=== PATIENT | female | born 1995 | race Caucasian/White ===

== ENCOUNTER → 2019-08-18 17:43 | Outpatient (CLI) | payer MEDICAID, SELFPAY | PROVIDERS: Visit Provider Obstetrics & Gynecology | DX: Z11.59 Encounter for screening for other viral diseases (principal) | CPT/HCPCS: 87635; G2023; U0003 ==

== ENCOUNTER 2019-08-20 06:25 | Inpatient (IN) | payer MEDICAID, SELFPAY ==
[2019-08-20] VITALS (57 sets, daily range): BP systolic 81–138; BP diastolic 48–88; PULSE 83–130; RESP 18; TEMP 36.2–37.5; O2SAT 84–100; BMI 30.9
[2019-08-20] MEDS: Lactated Ringers 500 ML 999 ML IV ×2 (06:45→10:51)
[2019-08-20 07:06] LABS: Absolute Lymphocyte Count 1.51 X10^3/uL (0.83-4.51); Absolute Neutrophil Count 9.1 X10^3/uL (2.0-7.7); Basophil# 0.03 X10^3/uL; Basophil% 0.3 % (0-1); Eosinophil# 0.05 X10^3/uL; Eosinophils% 0.4 % (0-5); Hematocrit 34.5 % (37-47); Lymphocyte # 1.51 X10^3/ul (4.0); Mean Corp Hgb Conc 31.9 g/dL (32-36); Mean Corpuscular Hgb 25.8 pg (27.0-32.0); Mean Corpuscular Volume 80.8 fL (81-99); Mean Platelet Vol. 9.5 fl (6.2-12.0); Monocyte% 7.7 % (0-10); NRBC Flagged by Analyzer 0 % (0-5); Neutrophil # 9.07 X10^3/uL (2.7-7.7); Neutrophil % 77.7 % (47-70); Platelet Count 274 K/mm3 (150-450); RBC Distribution Width CV 14.7 % (11.6-14.6); RBC Distribution Width SD 42.8 fl (35.1-43.9); Red Blood Count 4.27 M/mm3 (4.2-5.4); White Blood Count 11.7 K/mm3 (4.4-11.0)
[2019-08-20] MEDS: Lactated Ringers 1,000 ML 50 ML IV (07:15)
[2019-08-20] MEDS: fentaNYL-bupivacaine (epidural) 100 ML BAG EPIDURAL ×2 (08:30→13:14)
[2019-08-20 09:46] LABS: Probe Check PASS; Specimen Processing Control PASS
[2019-08-20] MEDS: Oxytocin 30 units/NS 500 ml 30 UNITS/500 ML IV.SOLN IV (12:17)
[2019-08-20] MEDS: Lactated Ringers 1,000 ML 200 ML IV ×2 (12:17→17:28)
--- NOTE | 2019-08-20 17:49 | PCM.HP.OB ---
History Date of Admission: 08/20/19 Final KALI: 08/18/19 Gestational age: 40 Weeks and 2 Days History of this : This is a 24 year-old, G [], P [], at 40 weeks gestational age. Surgical History: Surgical History (Last Updated 08/20/19 @ 17:[address] Rakel Ortiz MD) H/O breast surgery Z98.890 Allergies No Known Allergies Allergy (Verified 08/20/19 06:42) Home Medications: Home Medications Vits [Prenatabs FA] 1 tab PO DAILY 08/20/19 Smoking Status: Never smoker Alcohol: None Number of Fetus(es): 1 NST - FHR Rate Baby A Baseline: 155 Variability:: Minimal, Moderate Accelerations:: 15 x 15 Decelerations:: Variable Uterine Activity:: Q2 minutes History Past Pregnancies: Past Pregnancies Delivery Date Name GA/ Weeks Outcome Route Wt Infant Sex Labor Length Anesthesia Delivery Location Provider FOB Labs: See [facility] prenatals Physical Exam Vitals: Vital Signs Temp Pulse BP Pulse Ox 99.1 F 115 H 113/65 98 08/20/19 16:42 08/20/19 17:39 08/20/19 17:38 08/20/19 17:39 General: Alert, Oriented x3 Abdomen: Soft, Non Tender, Non-Distended, 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 Admit to L&D Expectant management - patient is complete & pushing GBS negative COVID negative Pain - comfortable with epidural EFW less than 4500g, patient with adequate pelvis Routine care
--- NOTE | 2019-08-20 18:12 | PCM.OPRPT ---
Vaginal Delivery Maternal Presentation: Active Labor Amniotic Membrane Rupture Type: Artificial Amniotic Fluid Description: Clear Final KALI: 08/18/19 Gestational age: 40 Weeks and 2 Days Date of Procedure: 08/20/19 Pre-Operative Diagnosis: Labor Post-Operative Diagnosis: Labor Surgery/ Procedure Performed: Spontaneous Vaginal Delivery Type of Anesthesia: Epidural Description of Procedure: Patient prepped and draped in stirrups when patient C/C/+3. She pushed to deliver the head. head gently guided to allow delivery of anterior and posterior. No excess traction placed on head. Shoulders & body delivered. Infant placed on maternal abdomen. 3VC clamped & cut in delayed fashion. Placenta delivered with gentle traction and good uterine tone obtained. Placental Delivery Description: Expressed Placenta Disposition: [facility] Cord Vessel Description: 3 Vessels Cord Entanglement: None Estimated Blood Loss: 350ml A gender: Male - Favian (1 minute): 8 (5 minute): 9 Episiotomy Description: None Laceration: 2nd degree - perineal and bilateral first degree vaginals - repaired with 3-0 vicryl Medications given after delivery: IV Pitocin Complications: None
[2019-08-20] MEDS: Oxytocin 30 units/NS 500 ml 30 UNITS/500 ML IV.SOLN 334 UNITS IV (18:41)
[2019-08-20] MEDS: Methylergonovine 0.2 MG/ML Ampul IM (20:33)
[2019-08-20] MEDS: Acetaminophen 500 MG Tablet 1000 MG PO (21:13)
[2019-08-21] MEDS: Ibuprofen 600 MG Tablet PO ×2 (02:54→12:28)
[2019-08-21] MEDS: Dibucaine 30 GM Tube 1 APPLIC TOPICAL (02:55)
[2019-08-21 03:07] VITALS: BP 103/69; PULSE 93; RESP 14; TEMP 36.8
[2019-08-21 08:30] VITALS: BP 101/60; PULSE 101; RESP 18; TEMP 36.6
[2019-08-21] MEDS: Acetaminophen 500 MG Tablet 1000 MG PO (08:34)
[2019-08-21 12:05] VITALS: BP 91/52; PULSE 96; RESP 16; TEMP 36.9
[2019-08-21 15:25] VITALS: BP 89/43; PULSE 94; RESP 16; TEMP 37.3
--- NOTE | 2019-08-21 16:54 | NURSING ---
1525 Late Entry pt denies feeling lightheaded or dizzy.
[2019-08-21 20:25] VITALS: BP 106/64; PULSE 98; RESP 16; TEMP 36.7
[2019-08-22] MEDS: Acetaminophen 500 MG Tablet 1000 MG PO ×2 (00:55→14:22)
[2019-08-22 02:00] VITALS: BP 84/56; PULSE 84; RESP 16; TEMP 37.1
[2019-08-22 07:48] VITALS: BP 98/62; PULSE 81; RESP 16; TEMP 36.6
--- NOTE | 2019-08-22 08:05 | DCINST_ITS ---
Discharge Diet: No Restrictions Discharge Activity: Return to Normal Activity May resume sexual activity in: 6-8 weeks Additional Instructions: If you experience any of the following, contact your healthcare provider. * Bleeding that soaks a pad every hour for 2 hours * Fever 100.4 or higher * Unrelieved incision or abdominal pain * Swelling, redness, discharge or bleeding from your incision or episiotomy site * Your incision begins to separate * Problems urinating (including inability to urinate or burning while urinating). * Visual changes * Severe headache * Flu-like symptoms * Pain or redness in one of both of your breasts * Pain, warmth, tenderness or swelling in your legs, especially the calf area * Frequent nausea and vomiting * Symptoms of depression or anxiety If you experience any of the following, call 911 or go to the nearest Emergency Room. * Chest pain * Problems breathing * Seizure activity * Partial or complete paralysis of a body part, slurred speech, weakness or drooping of the face, or a sudden inability to walk or hold your balance Allergies/Adverse Reactions: Allergies No Known Allergies Allergy (Verified 08/20/19 06:42) Medications to take at Discharge Vits [Prenatabs FA ] 1 tab PO DAILY 08/20/19 Please Follow Up With: Rakel Ortiz MD When: 2 weeks/ virtual visit and 6 weeks in office Test Results: Test results from this visit will be discussed in further detail at your follow- up appointment, if applicable.
--- NOTE | 2019-08-22 08:05 | PCM.DCVAG ---
Discharge Diet: No Restrictions Discharge Activity: Return to Normal Activity May resume sexual activity in: 6-8 weeks Additional Instructions: If you experience any of the following, contact your healthcare provider. Bleeding that soaks a pad every hour for 2 hours Fever 100.4 or higher Unrelieved incision or abdominal pain Swelling, redness, discharge or bleeding from your incision or episiotomy site Your incision begins to separate Problems urinating (including inability to urinate or burning while urinating). Visual changes Severe headache Flu-like symptoms Pain or redness in one of both of your breasts Pain, warmth, tenderness or swelling in your legs, especially the calf area Frequent nausea and vomiting Symptoms of depression or anxiety If you experience any of the following, call 911 or go to the nearest Emergency Room. Chest pain Problems breathing Seizure activity Partial or complete paralysis of a body part, slurred speech, weakness or drooping of the face, or a sudden inability to walk or hold your balance Allergies/Adverse Reactions: Allergies No Known Allergies Allergy (Verified 08/20/19 06:42) Medications to take at Discharge Vits [Prenatabs FA ] 1 tab PO DAILY 08/20/19 Please Follow Up With: Rakel Ortiz MD When: 2 weeks/ virtual visit and 6 weeks in office Test Results: Test results from this visit will be discussed in further detail at your follow-up appointment, if applicable.
--- NOTE | 2019-08-22 08:06 | PCM.PN.OB ---
Subjective: Patient seen at bedside. present for translation. Patient doing well, pain controlled with Motrin and Tylenol. Lochia decreased. Passing flatus. challenges but meeting with today. Requests to be discharged home today. - Physical Exam Vitals/I&O's: Vital Signs Temp Pulse Resp BP Pulse Ox 97.9 F 81 16 98/62 95 08/22/19 07:48 08/22/19 07:48 08/22/19 07:48 08/22/19 07:48 08/20/19 23:13 Oxygen Delivery Method Room Air Weight: 175 lb Body Mass Index (BMI) 30.9 Intake and Output for Last 24 Hours 08/20/19 08/21/19 08/22/19 23:59 23:59 23:59 Intake Total 3343.53 / 3343.53 Output Total 1300 / 1300 1500 / 1500 Balance 2043.53 / 2043.53 -1500 / -1500 General: Alert, Oriented x3 HEENT: Atraumatic Lungs: Normal air movement Cardiovascular: Regular rate Abdomen: Soft, Non Tender Musculoskeletal: No Tenderness to Palpation of Joints or Extremities Current Medications Acetaminophen (Tylenol) 1,000 mg PO Q8H PRN PRN PRN Reason: Pain Score 1-3/10 Last Admin: 08/22/19 00:55 Dose: 1,000 mg Documented by: Bisacodyl (Dulcolax) 10 mg RECTAL UD PRN PRN Reason: If no BM Dibucaine (Dibucaine) 1 applic TOPICAL TID PRN PRN; Protocol PRN Reason: Discomfort Last Admin: 08/21/19 02:55 Dose: 1 applicatio Documented by: Hydrocortisone (Hytone) 1 applic TOPICAL TID PRN PRN; Protocol PRN Reason: Discomfort Ibuprofen (Motrin) 600 mg PO Q6H PRN PRN PRN Reason: Pain Score 1-3/10 Last Admin: 08/21/19 12:28 Dose: 600 mg Documented by: Methylergonovine Maleate (Methergine) 0.2 mg IM X1 PRN PRN Reason: Excess bleeding/uterine atony Last Admin: 08/20/19 20:33 Dose: 0.2 mg Documented by: Ondansetron HCl (Zofran) 4 mg IV Q4H PRN PRN PRN Reason: Nausea Oxycodone HCl (Oxyir) 5 - 10 mg PO Q4H PRN PRN PRN Reason: Pain Score 4-10/10 Senna/Docusate Sodium (Senokot-S, Demetra-Colace) 1 - 2 tablet PO DAILY PRN PRN PRN Reason: Constipation Simethicone (Mylicon) 80 mg PO PCHS PRN PRN Reason: Indigestion/Stomach pain Sodium Chloride () 5 - 15 ml IV UD PRN PRN Reason: SALINE FLUSH Medical Necessity - Tobacco Use Smoking Status: Never smoker Assessment/Plan PPD #2 , recovering well routine care pain management Discharge home today Follow up in 2 weeks
[2019-08-22] MEDS: Ibuprofen 600 MG Tablet PO (08:17)
[2019-08-22] MEDS: Senna/Docusate Sodium 1 Tablet PO (08:17)
[2019-08-22 14:23] VITALS: BP 96/55; PULSE 86; RESP 16; TEMP 37.2
== END 2019-08-22 17:15 | disposition home or self-care (01) | DRG 560 ==
LOC: WPOUT 06:25 → OBT 06:26 → WPOUT 06:31 → WP 06:31
PROVIDERS: Admitting Provider Obstetrics & Gynecology; Visit Provider Obstetrics & Gynecology
DX: O76 Abnormality in fetal heart rate and rhythm complicating labor and delivery (principal); O70.1 Second degree perineal laceration during delivery; Z3A.40 40 weeks gestation of pregnancy; Z37.0 Single live birth
CPT/HCPCS: 59025; 59050; 85025; 86850; 86900; 86901; 87635; 99218; G2023; J7120; G0378; U0003